=== PATIENT | male | born 1995 | race Caucasian/White ===

== ENCOUNTER 2019-10-17 12:31 | Day surgery (SDC) | payer MEDICAID ==
[~2019-10-17] VITALS: Ht 162.6 cm; Wt 60.5 kg
[~2019-10-17 12:31] MED LIST: SODIUM CHLORIDE 0.9% 1,000 ML IV ONE; SODIUM CHLORIDE 0.9% 1,000 ML ONE
[2019-10-17] MEDS ORDERED: LIDOCAINE 1% 10 ML VIAL IM ONE (12:32)
[2019-10-17] MEDS ORDERED: PROPOFOL 1% 20 ML VIAL IVP ONE (12:32)
== END 2019-10-17 15:30 | disposition home or self-care (01) ==
LOC: SURGERY 12:31
PROVIDERS: ATTEND Internal Medicine Gastroenterology
DX: R10.9 Unspecified abdominal pain (principal); K29.50 Unspecified chronic gastritis without bleeding; K29.80 Duodenitis without bleeding
CPT/HCPCS: 43239; 88305; 88312; 88313; C1769; J2704; J3490; J7030